=== PATIENT | male | born 1950 | race African-American/Black ===

== ENCOUNTER 2016-09-04 18:47 | Inpatient (IN) | payer OTHER ==
[2016-09-04 19:45] VITALS: BMI 25.8
--- NOTE | 2016-09-04 23:26 | HP ---
Admission ROS [facility] Chief Complaint: I WANT TO GO TO REHAB Allergies/Adverse Reactions: Allergies Allergy/AdvReac Type Severity Reaction Status Date / Time No Known Allergies Allergy Verified 09/04/16 23:22 History of Present Illness: 65 YEARS OLD MALE WITH LONG HISTORY OF COCAINE NICOTINE DEPENDENCE, HAS DIABETES GLAUCOMA, AND SCHIZOPHRENIA IS ADMITTED TO REHAB Exam Limitations: No Limitations - Ebola screening Have you traveled outside of the country in the last 21 days: No Have you had contact with anyone from an Ebola affected area: No Have you been sick,other than usual withdrawal symptoms: No Do you have a fever: No - Review of Systems Constitutional: Weight Stable EENT: reports: Other (READING AND DISTANCE EYE GLASSES) Respiratory: reports: No Symptoms reported Cardiac: reports: No Symptoms Reported GI: reports: No Symptoms Reported : reports: Flank Pain Musculoskeletal: reports: No Symptoms Reported Integumentary: reports: No Symptoms Reported Neuro: reports: No Symptoms reported Endocrine: reports: No Symptoms Reported Hematology: reports: No Symptoms Reported Psychiatric: reports: Judgement Intact, Mood/Affect Appropiate (ABILIFY 400 MG IM EVERY 28 DAYS LAST IM 09/01/16), Orientated x3 Other Systems: Reviewed and Negative Patient History - Patient Medical History Hx Anemia: No Hx Asthma: No Hx Chronic Obstructive Pulmonary Disease (COPD): No Hx Cancer: No Hx Cardiac Disorders: No Hx Congestive Heart Failure: No Hx Hypertension: No Hx Hypercholesterolemia: No Hx Pacemaker: No HX Cerebrovascular Accident: No Hx Seizures: No Hx Dementia: No Hx Diabetes: Yes Hx Gastrointestinal Disorders: No Hx Liver Disease: No Hx Genitourinary Disorders: No Hx Sexually Transmitted Disorders: No Hx Renal Disease (ESRD): No Hx Thyroid Disease: No Hx Human Immunodeficiency Virus (HIV): No Hx Hepatitis C: Yes Hx Depression: No Hx Suicide Attempt: No Hx Bipolar Disorder: No Hx Schizophrenia: Yes - Patient Surgical History Past Surgical History: No - PPD History Previous Implant?: Yes Documented Results: Positive w/o proof Implanted On Prior [facility] Admission?: No PPD to be Administered?: Yes - Smoking Cessation Smoking history: Current every day smoker Have you smoked in the past 12 months: Yes Aproximately how many cigarettes per day: 20 Cigars Per Day: 0 Hx Chewing Tobacco Use: No Initiated information on smoking cessation: Yes 'Breaking Loose' booklet given: 01/17/17 - Substance & Tx. History Hx Alcohol Use: No Hx Substance Use: Yes Substance Use Type: Cocaine Hx Substance Use Treatment: Yes - Substances Abused Cocaine Route: Inhalation Frequency: 3-6 times per week Amount used: 50$ Age of first use: 18 Date of Last Use: 08/31/16 Family Disease History - Family Disease History Family Disease History: Other: Father (), Mother () Admission Physical Exam [facility] - Vital Signs Vital Signs: Vital Signs - 24 hr 09/04/16 19:42 Temperature 96.1 F L Pulse Rate 66 Respiratory 20 Rate Blood Pressure 152/82 - Physical General Appearance: Yes: No Apparent Distress, Appropriately Dressed, Thin HEENTM: Yes: Hearing grossly Normal, Normal ENT Inspection, Normocephalic, Normal Voice Respiratory: Yes: Chest Non-Tender, Lungs Clear, Normal Breath Sounds, No Respiratory Distress, No Accessory Muscle Use Neck: Yes: Supple, Trachea in good position Breast: Yes: Breasts Symetrical Cardiology: Yes: Regular Rhythm, Regular Rate, S1, S2 Abdominal: Yes: Non Tender, Soft Genitourinary: Yes: Within Normal Limits Back: Yes: Normal Inspection Musculoskeletal: Yes: full range of Motion, Gait Steady Extremities: Yes: Normal Inspection, Normal Range of Motion, Non-Tender Neurological: Yes: Fully Oriented, Alert, Motor Strength 5/5, Normal Response, Other (SCHIZOAFFECTIVE) Integumentary: Yes: Normal Color, Warm Lymphatic: Yes: Within Normal Limits - Diagnostic (1) Cocaine dependence, uncomplicated Current Visit: Yes Status: Acute (2) Schizoaffective disorder Current Visit: Yes Status: Suspected Qualifiers: Schizoaffective disorder type: bipolar Qualified Code(s): F25.0 - Schizoaffective disorder, bipolar type Comment: ABILIFY 400 MG IM EVERY 28 DAYS LAST IM 09/01/16 (3) Nicotine dependence Current Visit: Yes Status: Acute Qualifiers: Nicotine product type: cigarettes Substance use status: uncomplicated Qualified Code(s): F17.210 - Nicotine dependence, cigarettes, uncomplicated (4) Diabetes mellitus type II, controlled Current Visit: Yes Status: Acute Qualifiers: Diabetes mellitus complication status: without complication Diabetes mellitus embalmer/funeral director insulin use: with chcf use Qualified Code(s): E11.9 - Type 2 diabetes mellitus without complications; Z79.4 - [facility] ( current) use of insulin Comment: KIMMY 20 UNITS ACBK METFORMIN 500 MG BID (5) Positive PPD, treated Current Visit: Yes Status: Resolved Comment: CHEST X RAY PENDING (6) Glaucoma Current Visit: Yes Status: Chronic Qualifiers: Glaucoma type: other Laterality: bilateral Qualified Code(s): H40.89 - Other specified glaucoma Comment: LAST EYE DROPS BOTH EYES "MONTHS" AGO (7) Hepatitis C antibody test positive Current Visit: Yes Status: Chronic Comment: SCHEDULE FOR TREATMENT Cleared for Admission [facility] - Detox or Rehab [facility] Level of Care: Observation Bed Claeared for Rehab Admission: Yes [facility] Breath Alcohol Content Breath Alcohol Content: 0 Urine Drug Screen - Results Drug Screen Negative: No Urine Drug Screen Results: NERISSA-Cocaine, TCA-Tricyclic Antidepress
[2016-09-04] MEDS ORDERED: P-EPHED 60MG/TRIPROLIDI 2.5MG TABLET PO PRN (23:31)
[2016-09-04] MEDS ORDERED: ACETAMINOPHEN 325 MG TABLET (FP) PO PRN (23:31)
[2016-09-04] MEDS ORDERED: MAGNESIUM CITRATE 300 ML BOTTLE PO PRN (23:31)
[2016-09-04] MEDS ORDERED: hydrOXYzine PAMOATE 50 MG CAPSULE (FP) PO PRN (23:31)
[2016-09-04] MEDS ORDERED: LOPERAMIDE HCL 2 MG CAPSULE PO PRN (23:31)
[2016-09-04] MEDS ORDERED: MAG HYDROX/AL HYDROX/SIMETH 30 ML UNIT-DOSE CUP PO PRN (23:31)
[2016-09-04] MEDS ORDERED: MAGNESIUM HYDROX 2400MG/30ML ORAL SUSPENSION 30 ML CUP PO PRN (23:31)
[2016-09-04] MEDS ORDERED: MENTHOL/PHENOL 1 EACH UD MM PRN (23:31)
[2016-09-04] MEDS ORDERED: guaiFENesin/D-METHORPHAN HB 10 ML UNIT-DOSE CUPS PO PRN (23:31)
[2016-09-05 02:40] LABS: URINE APPEARANCE CLEAR; URINE BILIRUBIN NEGATIVE (NEGATIVE); URINE BLOOD NEGATIVE (NEGATIVE); URINE COLOR AMBER; URINE GLUCOSE (UA) 3+ (NEGATIVE); URINE KETONE NEGATIVE (NEGATIVE); URINE NITRITE NEGATIVE (NEGATIVE); URINE PROTEIN NEGATIVE (NEGATIVE); URINE UROBILINOGEN 4.0 E.U/dl E.U./dl (0.2-1.0)
[2016-09-05 02:47] LABS: URINE LEUK ESTERASE TRACE (NEGATIVE)
[2016-09-05 02:49] LABS: URINE RBC <1 /hpf (0-3); URINE WBC 16 /hpf (3-5)
--- NOTE | 2016-09-05 07:04 | HP ---
Psychiatrist Admission - Data Date of interview: 09/05/16 Admission source: [place] mandate Identifying data: This is the second [facility] admission for this 65 years old male,father of 4 children, unemployed on SSI, living in supportive housing Medical History: Significant for history of IDDM, Glaucoma, Hep C and PPD+. Smokes cigarettes 1ppd Psychiatric History: Patient is uncooperative, reluctant and vague in providing information. He can only say that he is diagnosed with Schizophrenia and has hd 4-5 previous psychiatric hospitalizations at [facility] in [facility] once and [facility] four times. Most recent admission was in June 2016 to [facility] and was discharged on Abilify injection 400 mg IM monthy. Claims that he last received his injection on August 29, 2015 . Denies previous suicidal attempt Physical/Sexual Abuse/Trauma History: Denies history of physical, sexual abuse as well as DV relationship Additional Comment: Reports history of 4 previous felony convictions. Reports being on life parole Vital Signs: Vital Signs - 24 hr 09/04/16 09/05/16 19:42 03:30 Temperature 96.1 F L Pulse Rate 66 Respiratory 20 16 Rate Blood Pressure 152/82 Allergies/Adverse Reactions: Allergies Allergy/AdvReac Type Severity Reaction Status Date / Time Penicillins Allergy Mild Hives Verified 09/05/16 01:37 Date of last physical exam: 09/04/16 Concur with the findings of this exam: Yes - Substance Abuse/Tx History Hx Alcohol Use: No Hx Substance Use: Yes Substance Use Type: Cocaine (Started using cocaine at age 18, consumes $50 worth 3-6 times weekly. Last used on 08/31/16) Hx Substance Use Treatment: Yes (2 previous inpt rehab @ [facility] and [facility] ) - Admission Criteria Previous failed treatment: No Poor recovery environment: Yes Comorbidities: Yes Lacks judgement: Yes Mental Status Exam - Mental Status Exam Mood: Depressed, Irritable Affect: Appropriate Patient Behavior: Uncooperative Speech Pattern: Clear Voice Loudness: Normal Thought Process: Intact Hallucinations: Denies Suicidal Ideation: Denies Homicidal Ideation: Denies Insight/Judgement: Fair Sleep: Poorly Appetite: Good Muscle strength/Tone: Normal Gait/Station: Normal Psychiatric Findings - Problem List ([place] 1, 2,3) (1) Cocaine dependence, uncomplicated Current Visit: Yes Status: Acute (2) Nicotine dependence Current Visit: Yes Status: Acute Qualifiers: Nicotine product type: cigarettes Substance use status: uncomplicated Qualified Code(s): F17.210 - Nicotine dependence, cigarettes, uncomplicated (3) Schizophrenia Current Visit: Yes Status: Acute (4) Diabetes mellitus type II, controlled Current Visit: Yes Status: Acute Qualifiers: Diabetes mellitus complication status: without complication Diabetes mellitus care home insulin use: with care home use Qualified Code(s): E11.9 - Type 2 diabetes mellitus without complications Comment: LANTUS 20 UNITS ACBK METFORMIN 500 MG BID (5) Glaucoma Current Visit: Yes Status: Chronic Qualifiers: Glaucoma type: other Laterality: bilateral Qualified Code(s): H40.89 - Other specified glaucoma Comment: LAST EYE DROPS BOTH EYES "MONTHS" AGO (6) Hepatitis C antibody test positive Current Visit: Yes Status: Chronic Comment: SCHEDULE FOR TREATMENT (7) Positive PPD, treated Current Visit: Yes Status: Resolved Comment: CHEST X RAY PENDING - Initial Treatment Plan Initial Treatment Plan: 1) Patient is due for his monthly Abilify injection on September 26, 2015. 2) Monitor progress
[2016-09-05] MEDS: metFORMIN HCL 500 MG TABLET (FP) PO SCH ×2 (07:20→16:55)
[2016-09-05] MEDS: INSULIN DETEMIR 100 UNITS/ML MDV SQ SCH (07:20)
[2016-09-05] MEDS: INSULIN SLIDING SCALE (NOVOLOG) 1 VIAL SQ SCH ×4 (07:21→21:25)
[2016-09-05] MEDS ORDERED: INSULIN (NOVOLOG) ASPART 100 UNITS/ML 10ML VIAL ONE ×3 (07:22→16:54)
[2016-09-05] MEDS: PRENATAL VITAMINS W/ FOLIC ACID TABLET (FP) PO SCH (10:26)
[2016-09-05] MEDS: NICOTINE 21 MG/24 HOURS TOPICAL PATCH TD SCH (10:26)
[2016-09-05 10:39] LABS: MCH 33.2 pg (25.7-33.7); MCHC 35.2 g/dl (32.0-35.9); MEAN CELL VOLUME 94.4 fl (80-96); MEAN PLT VOLUME 9.9 fl (7.5-11.1); PLATELET COUNT 158 K/MM3 (134-434); RDW 13.2 % (11.9-15.9); WHITE BLOOD COUNT 8.1 K/mm3 (4.0-10.0)
[2016-09-05 10:47] LABS: ALBUMIN 2.7 g/dl (3.4-5.0); ALK PHOS 148 U/L (45-117); ANION GAP 3 (8-16); BILIRUBIN,TOTAL 0.5 mg/dL (0.2-1.0); CALCIUM 8.9 mg/dL (8.5-10.1); CO2 29 mmol/L (21-32); CREATININE 1.1 mg/dL (0.7-1.3); GLUCOSE,RANDOM 253 mg/dL (74-106); SGOT/AST 153 U/L (15-37); SGPT/ALT 159 U/L (12-78); TOT PROT 7.1 g/dl (6.4-8.2)
--- NOTE | 2016-09-05 11:52 | EKG ---
Test Reason : Blood Pressure : / mmHG Vent. Rate : 076 BPM Atrial Rate : 076 BPM P-R Int : 172 ms QRS Dur : 090 ms QT Int : 358 ms P-R-T Axes : 070 034 027 degrees QTc Int : 402 ms NORMAL SINUS RHYTHM SEPTAL INFARCT , AGE UNDETERMINED ABNORMAL ECG NO PREVIOUS ECGS AVAILABLE Confirmed by CARMEN ABRAHAM, INGRID ([id number]) on 09/05/2016 11:51:28 AM Referred By: Srikanth Armstrong Confirmed By:INGRID MORALES MD
[2016-09-05] MEDS: THIAMINE HCL 100 MG TABLET (FP) PO SCH (21:25)
[2016-09-05] MEDS: diphenhydrAMINE HCL 50 MG CAPSULE PO PRN (21:25)
[2016-09-06] MEDS: metFORMIN HCL 500 MG TABLET (FP) PO SCH ×2 (06:32→17:00)
[2016-09-06] MEDS: INSULIN DETEMIR 100 UNITS/ML MDV SQ SCH (07:02)
[2016-09-06] MEDS: INSULIN SLIDING SCALE (NOVOLOG) 1 VIAL SQ SCH ×4 (07:02→21:28)
[2016-09-06] MEDS: NICOTINE 21 MG/24 HOURS TOPICAL PATCH TD SCH (10:16)
[2016-09-06] MEDS: PRENATAL VITAMINS W/ FOLIC ACID TABLET (FP) PO SCH (10:16)
[2016-09-06] MEDS ORDERED: INSULIN (NOVOLOG) ASPART 100 UNITS/ML 10ML VIAL ONE ×2 (11:34→17:04)
[2016-09-06] MEDS: diphenhydrAMINE HCL 50 MG CAPSULE PO PRN (21:28)
[2016-09-06] MEDS: THIAMINE HCL 100 MG TABLET (FP) PO SCH (21:29)
[2016-09-07] MEDS: metFORMIN HCL 500 MG TABLET (FP) PO SCH ×2 (07:30→16:55)
[2016-09-07] MEDS: INSULIN SLIDING SCALE (NOVOLOG) 1 VIAL SQ SCH ×4 (07:30→22:44)
[2016-09-07] MEDS ORDERED: INSULIN (NOVOLOG) ASPART 100 UNITS/ML 10ML VIAL ONE ×3 (07:30→16:52)
[2016-09-07] MEDS: INSULIN DETEMIR 100 UNITS/ML MDV SQ SCH (07:30)
[2016-09-07] MEDS: NICOTINE 21 MG/24 HOURS TOPICAL PATCH TD SCH (10:16)
[2016-09-07] MEDS: PRENATAL VITAMINS W/ FOLIC ACID TABLET (FP) PO SCH (10:16)
[2016-09-07] MEDS: THIAMINE HCL 100 MG TABLET (FP) PO SCH (22:44)
[2016-09-08] MEDS: metFORMIN HCL 500 MG TABLET (FP) PO SCH ×2 (06:30→16:52)
[2016-09-08] MEDS: INSULIN DETEMIR 100 UNITS/ML MDV SQ SCH (06:32)
[2016-09-08] MEDS ORDERED: INSULIN (NOVOLOG) ASPART 100 UNITS/ML 10ML VIAL ONE ×4 (06:34→22:04)
[2016-09-08] MEDS: INSULIN SLIDING SCALE (NOVOLOG) 1 VIAL SQ SCH ×4 (06:35→21:10)
[2016-09-08] MEDS: NICOTINE 21 MG/24 HOURS TOPICAL PATCH TD SCH (10:19)
[2016-09-08] MEDS: PRENATAL VITAMINS W/ FOLIC ACID TABLET (FP) PO SCH (10:19)
[2016-09-08] MEDS: THIAMINE HCL 100 MG TABLET (FP) PO SCH (21:09)
[2016-09-08] MEDS: diphenhydrAMINE HCL 50 MG CAPSULE PO PRN (21:09)
[2016-09-09] MEDS ORDERED: INSULIN (NOVOLOG) ASPART 100 UNITS/ML 10ML VIAL ONE ×4 (07:21→22:14)
[2016-09-09] MEDS: metFORMIN HCL 500 MG TABLET (FP) PO SCH ×2 (07:23→16:54)
[2016-09-09] MEDS: INSULIN DETEMIR 100 UNITS/ML MDV SQ SCH (07:23)
[2016-09-09] MEDS: INSULIN SLIDING SCALE (NOVOLOG) 1 VIAL SQ SCH ×4 (07:24→21:29)
[2016-09-09] MEDS: PRENATAL VITAMINS W/ FOLIC ACID TABLET (FP) PO SCH (10:12)
[2016-09-09] MEDS: NICOTINE 21 MG/24 HOURS TOPICAL PATCH TD SCH (10:12)
[2016-09-09] MEDS: THIAMINE HCL 100 MG TABLET (FP) PO SCH (21:29)
[2016-09-09] MEDS: diphenhydrAMINE HCL 50 MG CAPSULE PO PRN (21:29)
[2016-09-10] MEDS: metFORMIN HCL 500 MG TABLET (FP) PO SCH ×2 (06:38→16:50)
[2016-09-10] MEDS: INSULIN SLIDING SCALE (NOVOLOG) 1 VIAL SQ SCH ×4 (06:41→21:18)
[2016-09-10] MEDS: INSULIN DETEMIR 100 UNITS/ML MDV SQ SCH (06:41)
[2016-09-10] MEDS ORDERED: INSULIN (NOVOLOG) ASPART 100 UNITS/ML 10ML VIAL ONE ×3 (07:12→22:40)
[2016-09-10] MEDS: NICOTINE 21 MG/24 HOURS TOPICAL PATCH TD SCH (10:52)
[2016-09-10] MEDS: PRENATAL VITAMINS W/ FOLIC ACID TABLET (FP) PO SCH (10:52)
[2016-09-10] MEDS: diphenhydrAMINE HCL 50 MG CAPSULE PO PRN (21:18)
[2016-09-10] MEDS: THIAMINE HCL 100 MG TABLET (FP) PO SCH (21:18)
[2016-09-11] MEDS: metFORMIN HCL 500 MG TABLET (FP) PO SCH ×2 (07:38→16:53)
[2016-09-11] MEDS: INSULIN DETEMIR 100 UNITS/ML MDV SQ SCH (07:39)
[2016-09-11] MEDS: INSULIN SLIDING SCALE (NOVOLOG) 1 VIAL SQ SCH ×4 (07:39→21:39)
[2016-09-11] MEDS ORDERED: INSULIN (NOVOLOG) ASPART 100 UNITS/ML 10ML VIAL ONE ×3 (07:39→16:52)
[2016-09-11] MEDS: PRENATAL VITAMINS W/ FOLIC ACID TABLET (FP) PO SCH (10:08)
[2016-09-11] MEDS: NICOTINE 21 MG/24 HOURS TOPICAL PATCH TD SCH (10:09)
[2016-09-11] MEDS: IBUPROFEN 400 MG TABLET (FP) PO PRN ×2 (10:40→20:07)
[2016-09-11] MEDS: diphenhydrAMINE HCL 50 MG CAPSULE PO PRN (21:38)
[2016-09-11] MEDS: THIAMINE HCL 100 MG TABLET (FP) PO SCH (21:38)
[2016-09-12] MEDS ORDERED: INSULIN (NOVOLOG) ASPART 100 UNITS/ML 10ML VIAL ONE ×3 (07:35→16:42)
[2016-09-12] MEDS: INSULIN DETEMIR 100 UNITS/ML MDV SQ SCH (07:39)
[2016-09-12] MEDS: metFORMIN HCL 500 MG TABLET (FP) PO SCH ×2 (07:39→16:42)
[2016-09-12] MEDS: INSULIN SLIDING SCALE (NOVOLOG) 1 VIAL SQ SCH ×4 (07:40→22:18)
[2016-09-12] MEDS: PRENATAL VITAMINS W/ FOLIC ACID TABLET (FP) PO SCH (10:11)
[2016-09-12] MEDS: NICOTINE 21 MG/24 HOURS TOPICAL PATCH TD SCH (10:12)
[2016-09-12] MEDS: IBUPROFEN 400 MG TABLET (FP) PO PRN (11:55)
[2016-09-12] MEDS: THIAMINE HCL 100 MG TABLET (FP) PO SCH (21:22)
[2016-09-12] MEDS: CYCLOBENZAPRINE HCL 10 MG TABLET (FP) PO PRN (21:22)
[2016-09-13] MEDS ORDERED: INSULIN (NOVOLOG) ASPART 100 UNITS/ML 10ML VIAL ONE ×4 (07:01→22:02)
[2016-09-13] MEDS: INSULIN DETEMIR 100 UNITS/ML MDV SQ SCH (07:02)
[2016-09-13] MEDS: metFORMIN HCL 500 MG TABLET (FP) PO SCH ×2 (07:02→16:51)
[2016-09-13] MEDS: INSULIN SLIDING SCALE (NOVOLOG) 1 VIAL SQ SCH ×4 (07:02→21:23)
[2016-09-13] MEDS: PRENATAL VITAMINS W/ FOLIC ACID TABLET (FP) PO SCH (09:57)
[2016-09-13] MEDS: NICOTINE 21 MG/24 HOURS TOPICAL PATCH TD SCH (09:57)
--- NOTE | 2016-09-13 11:14 | HP ---
Psychiatrist Admission - Data Date of interview: 09/13/16 Admission source: Self-referred Vital Signs: Vital Signs - 24 hr 09/13/16 09/13/16 03:30 06:54 Temperature 98.3 F Pulse Rate 70 Respiratory 18 18 Rate Blood Pressure 143/90 Allergies/Adverse Reactions: Allergies Allergy/AdvReac Type Severity Reaction Status Date / Time Penicillins Allergy Mild Hives Verified 09/05/16 01:37 Psychiatric Findings - Problem List ([place] 1, 2,3) (1) Cocaine dependence, uncomplicated Current Visit: Yes Status: Acute (2) Nicotine dependence Current Visit: Yes Status: Acute Qualifiers: Nicotine product type: cigarettes Substance use status: uncomplicated Qualified Code(s): F17.210 - Nicotine dependence, cigarettes, uncomplicated (3) Schizophrenia Current Visit: Yes Status: Acute (4) Diabetes mellitus type II, controlled Current Visit: Yes Status: Acute Qualifiers: Diabetes mellitus complication status: without complication 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
[2016-09-13] MEDS: CYCLOBENZAPRINE HCL 10 MG TABLET (FP) PO PRN (15:51)
[2016-09-13] MEDS: diphenhydrAMINE HCL 50 MG CAPSULE PO PRN (21:24)
[2016-09-13] MEDS: THIAMINE HCL 100 MG TABLET (FP) PO SCH (21:24)
[2016-09-14] MEDS ORDERED: INSULIN (NOVOLOG) ASPART 100 UNITS/ML 10ML VIAL ONE ×3 (07:35→22:53)
[2016-09-14] MEDS: INSULIN DETEMIR 100 UNITS/ML MDV SQ SCH (07:36)
[2016-09-14] MEDS: metFORMIN HCL 500 MG TABLET (FP) PO SCH ×2 (07:36→16:45)
[2016-09-14] MEDS: INSULIN SLIDING SCALE (NOVOLOG) 1 VIAL SQ SCH ×4 (07:36→21:52)
[2016-09-14] MEDS: PRENATAL VITAMINS W/ FOLIC ACID TABLET (FP) PO SCH (10:04)
[2016-09-14] MEDS: NICOTINE 21 MG/24 HOURS TOPICAL PATCH TD SCH (10:04)
[2016-09-14] MEDS: ARIPiprazole 5 MG TABLET (FP) PO SCH (10:20)
--- NOTE | 2016-09-14 11:00 | PN ---
[facility] Progress Note Note: Patient is on Abilify Maintena 400 mg IM every month and he will be due to receive it on 09/19/16. Since that medication is not part of the facility formulary, patient referral source, [facility] was contacted in order for them to provide us with the medication sealed so a staff nurse in our facility can administer it to the patient. Conveyor Man contated [facility] and talked to Chucky Grover who is the director. He said that he will make sure we receive medication prior to administration date(09/19/16). Also health technical writer is in possession of a fax of patient's current medication list from [facility]. On that list, not only Abilify maintena is figured but also Abilify 5 mg po daily. That information was verified with or confirmed by Mr Grover. So patient will be started on Abilify 5 mg po daily with first dose to be given now
[2016-09-14] MEDS: diphenhydrAMINE HCL 50 MG CAPSULE PO PRN (21:52)
[2016-09-14] MEDS: THIAMINE HCL 100 MG TABLET (FP) PO SCH (21:52)
[2016-09-15] MEDS: metFORMIN HCL 500 MG TABLET (FP) PO SCH ×2 (07:09→16:48)
[2016-09-15] MEDS: INSULIN DETEMIR 100 UNITS/ML MDV SQ SCH (07:29)
[2016-09-15] MEDS: INSULIN SLIDING SCALE (NOVOLOG) 1 VIAL SQ SCH ×4 (07:30→22:00)
[2016-09-15] MEDS ORDERED: INSULIN (NOVOLOG) ASPART 100 UNITS/ML 10ML VIAL ONE ×4 (07:47→21:59)
[2016-09-15] MEDS: ARIPiprazole 5 MG TABLET (FP) PO SCH (10:23)
[2016-09-15] MEDS: PRENATAL VITAMINS W/ FOLIC ACID TABLET (FP) PO SCH (10:23)
[2016-09-15] MEDS: NICOTINE 21 MG/24 HOURS TOPICAL PATCH TD SCH (10:24)
[2016-09-15] MEDS: THIAMINE HCL 100 MG TABLET (FP) PO SCH (21:57)
[2016-09-15] MEDS: CYCLOBENZAPRINE HCL 10 MG TABLET (FP) PO PRN (21:57)
[2016-09-15] MEDS: diphenhydrAMINE HCL 50 MG CAPSULE PO PRN (21:58)
[2016-09-16] MEDS: metFORMIN HCL 500 MG TABLET (FP) PO SCH ×2 (06:25→16:45)
[2016-09-16] MEDS: INSULIN DETEMIR 100 UNITS/ML MDV SQ SCH (06:28)
[2016-09-16] MEDS: INSULIN SLIDING SCALE (NOVOLOG) 1 VIAL SQ SCH ×4 (06:29→21:33)
[2016-09-16] MEDS: ARIPiprazole 5 MG TABLET (FP) PO SCH (10:00)
[2016-09-16] MEDS: NICOTINE 21 MG/24 HOURS TOPICAL PATCH TD SCH (10:00)
[2016-09-16] MEDS: PRENATAL VITAMINS W/ FOLIC ACID TABLET (FP) PO SCH (10:00)
[2016-09-16] MEDS: NICOTINE POLACRILEX 2 MG GUM BC PRN (10:00)
[2016-09-16] MEDS ORDERED: INSULIN (NOVOLOG) ASPART 100 UNITS/ML 10ML VIAL ONE ×3 (11:28→21:33)
[2016-09-16] MEDS: diphenhydrAMINE HCL 50 MG CAPSULE PO PRN (21:32)
[2016-09-16] MEDS: THIAMINE HCL 100 MG TABLET (FP) PO SCH (21:32)
[2016-09-16] MEDS: CYCLOBENZAPRINE HCL 10 MG TABLET (FP) PO PRN (21:32)
[2016-09-17] MEDS: metFORMIN HCL 500 MG TABLET (FP) PO SCH ×2 (07:26→16:51)
[2016-09-17] MEDS: INSULIN DETEMIR 100 UNITS/ML MDV SQ SCH (07:26)
[2016-09-17] MEDS: INSULIN SLIDING SCALE (NOVOLOG) 1 VIAL SQ SCH ×4 (07:27→21:07)
[2016-09-17] MEDS ORDERED: INSULIN (NOVOLOG) ASPART 100 UNITS/ML 10ML VIAL ONE ×4 (07:40→21:06)
[2016-09-17] MEDS: PRENATAL VITAMINS W/ FOLIC ACID TABLET (FP) PO SCH (10:18)
[2016-09-17] MEDS: ARIPiprazole 5 MG TABLET (FP) PO SCH (10:18)
[2016-09-17] MEDS: NICOTINE 21 MG/24 HOURS TOPICAL PATCH TD SCH (10:18)
[2016-09-17] MEDS: THIAMINE HCL 100 MG TABLET (FP) PO SCH (21:07)
[2016-09-17] MEDS: CYCLOBENZAPRINE HCL 10 MG TABLET (FP) PO PRN (21:07)
[2016-09-18] MEDS: metFORMIN HCL 500 MG TABLET (FP) PO SCH ×2 (06:14→16:42)
[2016-09-18] MEDS: INSULIN DETEMIR 100 UNITS/ML MDV SQ SCH (07:19)
[2016-09-18] MEDS: INSULIN SLIDING SCALE (NOVOLOG) 1 VIAL SQ SCH ×4 (07:19→21:36)
[2016-09-18] MEDS ORDERED: INSULIN (NOVOLOG) ASPART 100 UNITS/ML 10ML VIAL ONE ×4 (07:58→21:34)
[2016-09-18] MEDS: NICOTINE 21 MG/24 HOURS TOPICAL PATCH TD SCH (10:08)
[2016-09-18] MEDS: PRENATAL VITAMINS W/ FOLIC ACID TABLET (FP) PO SCH (10:08)
[2016-09-18] MEDS: ARIPiprazole 5 MG TABLET (FP) PO SCH (10:08)
[2016-09-18] MEDS: diphenhydrAMINE HCL 50 MG CAPSULE PO PRN (21:34)
[2016-09-18] MEDS: THIAMINE HCL 100 MG TABLET (FP) PO SCH (21:34)
[2016-09-19] MEDS: CYCLOBENZAPRINE HCL 10 MG TABLET (FP) PO PRN (06:44)
[2016-09-19] MEDS: INSULIN SLIDING SCALE (NOVOLOG) 1 VIAL SQ SCH ×4 (07:30→21:58)
[2016-09-19] MEDS ORDERED: INSULIN (NOVOLOG) ASPART 100 UNITS/ML 10ML VIAL ONE ×4 (08:00→21:56)
[2016-09-19] MEDS: INSULIN DETEMIR 100 UNITS/ML MDV SQ SCH (08:01)
[2016-09-19] MEDS: metFORMIN HCL 500 MG TABLET (FP) PO SCH ×2 (08:01→16:46)
[2016-09-19] MEDS: NICOTINE 21 MG/24 HOURS TOPICAL PATCH TD SCH (10:05)
[2016-09-19] MEDS: ARIPiprazole 5 MG TABLET (FP) PO SCH (10:05)
[2016-09-19] MEDS: PRENATAL VITAMINS W/ FOLIC ACID TABLET (FP) PO SCH (10:05)
[2016-09-19] MEDS: ARIPIPRAZOLE 400 MG IM SCH (15:25)
[2016-09-19] MEDS: diphenhydrAMINE HCL 50 MG CAPSULE PO PRN (21:58)
[2016-09-19] MEDS: THIAMINE HCL 100 MG TABLET (FP) PO SCH (21:58)
[2016-09-20] MEDS: metFORMIN HCL 500 MG TABLET (FP) PO SCH ×2 (06:40→16:39)
[2016-09-20] MEDS: INSULIN SLIDING SCALE (NOVOLOG) 1 VIAL SQ SCH ×4 (06:43→22:15)
[2016-09-20] MEDS: INSULIN DETEMIR 100 UNITS/ML MDV SQ SCH (06:43)
[2016-09-20] MEDS ORDERED: INSULIN (NOVOLOG) ASPART 100 UNITS/ML 10ML VIAL ONE ×4 (08:05→22:13)
[2016-09-20] MEDS: ARIPiprazole 5 MG TABLET (FP) PO SCH (10:28)
[2016-09-20] MEDS: PRENATAL VITAMINS W/ FOLIC ACID TABLET (FP) PO SCH (10:29)
[2016-09-20] MEDS: NICOTINE 21 MG/24 HOURS TOPICAL PATCH TD SCH (10:29)
[2016-09-20] MEDS: ARIPIPRAZOLE 400 MG IM SCH (15:34)
[2016-09-20] MEDS: diphenhydrAMINE HCL 50 MG CAPSULE PO PRN (22:13)
[2016-09-20] MEDS: THIAMINE HCL 100 MG TABLET (FP) PO SCH (22:13)
[2016-09-21] MEDS: CYCLOBENZAPRINE HCL 10 MG TABLET (FP) PO PRN (06:39)
[2016-09-21] MEDS: metFORMIN HCL 500 MG TABLET (FP) PO SCH ×2 (07:28→16:49)
[2016-09-21] MEDS: INSULIN SLIDING SCALE (NOVOLOG) 1 VIAL SQ SCH ×4 (07:28→21:07)
[2016-09-21] MEDS: INSULIN DETEMIR 100 UNITS/ML MDV SQ SCH (07:28)
[2016-09-21] MEDS ORDERED: INSULIN (NOVOLOG) ASPART 100 UNITS/ML 10ML VIAL ONE ×3 (07:30→22:28)
[2016-09-21] MEDS: PRENATAL VITAMINS W/ FOLIC ACID TABLET (FP) PO SCH (10:34)
[2016-09-21] MEDS: ARIPiprazole 5 MG TABLET (FP) PO SCH (10:34)
[2016-09-21] MEDS: NICOTINE 21 MG/24 HOURS TOPICAL PATCH TD SCH (10:34)
[2016-09-21] MEDS: diphenhydrAMINE HCL 50 MG CAPSULE PO PRN (21:06)
[2016-09-21] MEDS: THIAMINE HCL 100 MG TABLET (FP) PO SCH (21:06)
[2016-09-22] MEDS: CYCLOBENZAPRINE HCL 10 MG TABLET (FP) PO PRN (06:17)
[2016-09-22] MEDS: metFORMIN HCL 500 MG TABLET (FP) PO SCH ×2 (07:06→16:57)
[2016-09-22] MEDS ORDERED: INSULIN (NOVOLOG) ASPART 100 UNITS/ML 10ML VIAL ONE ×4 (07:06→22:25)
[2016-09-22] MEDS: INSULIN SLIDING SCALE (NOVOLOG) 1 VIAL SQ SCH ×4 (07:07→21:27)
[2016-09-22] MEDS: INSULIN DETEMIR 100 UNITS/ML MDV SQ SCH (07:07)
[2016-09-22] MEDS: PRENATAL VITAMINS W/ FOLIC ACID TABLET (FP) PO SCH (10:33)
[2016-09-22] MEDS: ARIPiprazole 5 MG TABLET (FP) PO SCH (10:33)
[2016-09-22] MEDS: NICOTINE 21 MG/24 HOURS TOPICAL PATCH TD SCH (10:33)
[2016-09-22] MEDS: diphenhydrAMINE HCL 50 MG CAPSULE PO PRN (21:26)
[2016-09-22] MEDS: THIAMINE HCL 100 MG TABLET (FP) PO SCH (21:26)
[2016-09-23] MEDS: CYCLOBENZAPRINE HCL 10 MG TABLET (FP) PO PRN (06:28)
[2016-09-23] MEDS ORDERED: INSULIN (NOVOLOG) ASPART 100 UNITS/ML 10ML VIAL ONE ×4 (07:18→21:54)
[2016-09-23] MEDS: metFORMIN HCL 500 MG TABLET (FP) PO SCH ×2 (07:20→16:52)
[2016-09-23] MEDS: INSULIN SLIDING SCALE (NOVOLOG) 1 VIAL SQ SCH ×4 (07:20→21:22)
[2016-09-23] MEDS: INSULIN DETEMIR 100 UNITS/ML MDV SQ SCH (07:20)
[2016-09-23] MEDS: ARIPiprazole 5 MG TABLET (FP) PO SCH (10:31)
[2016-09-23] MEDS: NICOTINE 21 MG/24 HOURS TOPICAL PATCH TD SCH (10:31)
[2016-09-23] MEDS: PRENATAL VITAMINS W/ FOLIC ACID TABLET (FP) PO SCH (10:31)
[2016-09-23] MEDS: NICOTINE POLACRILEX 2 MG GUM BC PRN (10:32)
[2016-09-23] MEDS: THIAMINE HCL 100 MG TABLET (FP) PO SCH (21:22)
[2016-09-23] MEDS: diphenhydrAMINE HCL 50 MG CAPSULE PO PRN (21:22)
[2016-09-24] MEDS: metFORMIN HCL 500 MG TABLET (FP) PO SCH ×2 (06:33→16:57)
[2016-09-24] MEDS: INSULIN SLIDING SCALE (NOVOLOG) 1 VIAL SQ SCH ×4 (07:07→22:12)
[2016-09-24] MEDS: INSULIN DETEMIR 100 UNITS/ML MDV SQ SCH (07:07)
[2016-09-24] MEDS: NICOTINE 21 MG/24 HOURS TOPICAL PATCH TD SCH (10:21)
[2016-09-24] MEDS: ARIPiprazole 5 MG TABLET (FP) PO SCH (10:21)
[2016-09-24] MEDS: PRENATAL VITAMINS W/ FOLIC ACID TABLET (FP) PO SCH (10:21)
[2016-09-24] MEDS ORDERED: INSULIN (NOVOLOG) ASPART 100 UNITS/ML 10ML VIAL ONE ×3 (11:20→22:10)
[2016-09-24] MEDS: diphenhydrAMINE HCL 50 MG CAPSULE PO PRN (22:11)
[2016-09-24] MEDS: THIAMINE HCL 100 MG TABLET (FP) PO SCH (22:11)
[2016-09-25] MEDS: metFORMIN HCL 500 MG TABLET (FP) PO SCH ×2 (06:27→16:54)
[2016-09-25] MEDS ORDERED: INSULIN (NOVOLOG) ASPART 100 UNITS/ML 10ML VIAL ONE ×4 (06:44→21:58)
[2016-09-25] MEDS: INSULIN DETEMIR 100 UNITS/ML MDV SQ SCH (06:57)
[2016-09-25] MEDS: INSULIN SLIDING SCALE (NOVOLOG) 1 VIAL SQ SCH ×4 (06:57→22:00)
[2016-09-25] MEDS: NICOTINE 21 MG/24 HOURS TOPICAL PATCH TD SCH (10:21)
[2016-09-25] MEDS: ARIPiprazole 5 MG TABLET (FP) PO SCH (10:21)
[2016-09-25] MEDS: PRENATAL VITAMINS W/ FOLIC ACID TABLET (FP) PO SCH (10:21)
--- NOTE | 2016-09-25 12:54 | PN ---
S Progress Note Note: patient is on janumet 50/500 mgs po bid, will add januvia 50 mgs po bid to metformin bgm monitoring
[2016-09-25] MEDS: sitaGLIPtin PHOSPHATE 50 MG TABLET PO SCH (16:54)
[2016-09-25] MEDS: diphenhydrAMINE HCL 50 MG CAPSULE PO PRN (21:58)
[2016-09-25] MEDS: THIAMINE HCL 100 MG TABLET (FP) PO SCH (21:58)
[2016-09-26] MEDS: sitaGLIPtin PHOSPHATE 50 MG TABLET PO SCH ×2 (06:37→16:38)
[2016-09-26] MEDS: metFORMIN HCL 500 MG TABLET (FP) PO SCH ×2 (06:37→16:38)
[2016-09-26] MEDS: INSULIN SLIDING SCALE (NOVOLOG) 1 VIAL SQ SCH ×4 (06:38→21:39)
[2016-09-26] MEDS: INSULIN DETEMIR 100 UNITS/ML MDV SQ SCH (06:38)
[2016-09-26] MEDS ORDERED: INSULIN (NOVOLOG) ASPART 100 UNITS/ML 10ML VIAL ONE ×4 (06:57→21:37)
[2016-09-26] MEDS: NICOTINE 21 MG/24 HOURS TOPICAL PATCH TD SCH (10:21)
[2016-09-26] MEDS: PRENATAL VITAMINS W/ FOLIC ACID TABLET (FP) PO SCH (10:21)
[2016-09-26] MEDS: ARIPiprazole 5 MG TABLET (FP) PO SCH (10:21)
[2016-09-26] MEDS: diphenhydrAMINE HCL 50 MG CAPSULE PO PRN (21:37)
[2016-09-26] MEDS: THIAMINE HCL 100 MG TABLET (FP) PO SCH (21:37)
[2016-09-27] MEDS: sitaGLIPtin PHOSPHATE 50 MG TABLET PO SCH ×2 (07:00→16:46)
[2016-09-27] MEDS: metFORMIN HCL 500 MG TABLET (FP) PO SCH ×2 (07:00→16:45)
[2016-09-27] MEDS ORDERED: INSULIN (NOVOLOG) ASPART 100 UNITS/ML 10ML VIAL ONE ×4 (07:01→22:11)
[2016-09-27] MEDS: INSULIN DETEMIR 100 UNITS/ML MDV SQ SCH (07:03)
[2016-09-27] MEDS: INSULIN SLIDING SCALE (NOVOLOG) 1 VIAL SQ SCH ×4 (07:03→21:25)
[2016-09-27] MEDS: ARIPiprazole 5 MG TABLET (FP) PO SCH (10:06)
[2016-09-27] MEDS: PRENATAL VITAMINS W/ FOLIC ACID TABLET (FP) PO SCH (10:06)
[2016-09-27] MEDS: NICOTINE 21 MG/24 HOURS TOPICAL PATCH TD SCH (10:07)
[2016-09-27] MEDS: THIAMINE HCL 100 MG TABLET (FP) PO SCH (21:24)
[2016-09-27] MEDS: diphenhydrAMINE HCL 50 MG CAPSULE PO PRN (21:24)
[2016-09-28] MEDS: sitaGLIPtin PHOSPHATE 50 MG TABLET PO SCH ×2 (06:40→16:46)
[2016-09-28] MEDS: metFORMIN HCL 500 MG TABLET (FP) PO SCH ×2 (06:40→16:46)
[2016-09-28] MEDS: INSULIN DETEMIR 100 UNITS/ML MDV SQ SCH (06:42)
[2016-09-28] MEDS: INSULIN SLIDING SCALE (NOVOLOG) 1 VIAL SQ SCH ×4 (06:43→21:16)
[2016-09-28] MEDS ORDERED: INSULIN (NOVOLOG) ASPART 100 UNITS/ML 10ML VIAL ONE ×3 (06:44→22:27)
[2016-09-28] MEDS: ARIPiprazole 5 MG TABLET (FP) PO SCH (10:29)
[2016-09-28] MEDS: NICOTINE 21 MG/24 HOURS TOPICAL PATCH TD SCH (10:29)
[2016-09-28] MEDS: PRENATAL VITAMINS W/ FOLIC ACID TABLET (FP) PO SCH (10:29)
[2016-09-28] MEDS: THIAMINE HCL 100 MG TABLET (FP) PO SCH (21:16)
[2016-09-28] MEDS: diphenhydrAMINE HCL 50 MG CAPSULE PO PRN (21:16)
[2016-09-29] MEDS: metFORMIN HCL 500 MG TABLET (FP) PO SCH ×2 (06:44→16:25)
[2016-09-29] MEDS: sitaGLIPtin PHOSPHATE 50 MG TABLET PO SCH ×2 (06:45→16:25)
[2016-09-29] MEDS: INSULIN DETEMIR 100 UNITS/ML MDV SQ SCH (06:47)
[2016-09-29] MEDS: INSULIN SLIDING SCALE (NOVOLOG) 1 VIAL SQ SCH ×4 (06:47→21:40)
[2016-09-29] MEDS ORDERED: INSULIN (NOVOLOG) ASPART 100 UNITS/ML 10ML VIAL ONE ×4 (08:03→21:39)
[2016-09-29] MEDS: PRENATAL VITAMINS W/ FOLIC ACID TABLET (FP) PO SCH (10:05)
[2016-09-29] MEDS: ARIPiprazole 5 MG TABLET (FP) PO SCH (10:05)
[2016-09-29] MEDS: NICOTINE 21 MG/24 HOURS TOPICAL PATCH TD SCH (10:05)
[2016-09-29] MEDS: diphenhydrAMINE HCL 50 MG CAPSULE PO PRN (21:39)
[2016-09-29] MEDS: THIAMINE HCL 100 MG TABLET (FP) PO SCH (21:39)
[2016-09-30] MEDS: metFORMIN HCL 500 MG TABLET (FP) PO SCH ×2 (06:46→16:27)
[2016-09-30] MEDS: INSULIN DETEMIR 100 UNITS/ML MDV SQ SCH (06:46)
[2016-09-30] MEDS: sitaGLIPtin PHOSPHATE 50 MG TABLET PO SCH ×2 (06:46→16:27)
[2016-09-30] MEDS: INSULIN SLIDING SCALE (NOVOLOG) 1 VIAL SQ SCH ×4 (06:48→21:42)
[2016-09-30] MEDS ORDERED: INSULIN (NOVOLOG) ASPART 100 UNITS/ML 10ML VIAL ONE ×4 (07:45→21:40)
[2016-09-30] MEDS: ARIPiprazole 5 MG TABLET (FP) PO SCH (10:05)
[2016-09-30] MEDS: NICOTINE 21 MG/24 HOURS TOPICAL PATCH TD SCH (10:05)
[2016-09-30] MEDS: PRENATAL VITAMINS W/ FOLIC ACID TABLET (FP) PO SCH (10:05)
[2016-09-30] MEDS: diphenhydrAMINE HCL 50 MG CAPSULE PO PRN (21:41)
[2016-09-30] MEDS: THIAMINE HCL 100 MG TABLET (FP) PO SCH (21:41)
[2016-10-01] MEDS: sitaGLIPtin PHOSPHATE 50 MG TABLET PO SCH ×2 (06:13→16:47)
[2016-10-01] MEDS: metFORMIN HCL 500 MG TABLET (FP) PO SCH ×2 (06:13→16:47)
[2016-10-01] MEDS: INSULIN SLIDING SCALE (NOVOLOG) 1 VIAL SQ SCH ×4 (06:17→21:42)
[2016-10-01] MEDS: INSULIN DETEMIR 100 UNITS/ML MDV SQ SCH (06:17)
[2016-10-01] MEDS ORDERED: INSULIN (NOVOLOG) ASPART 100 UNITS/ML 10ML VIAL ONE ×4 (06:29→22:13)
[2016-10-01] MEDS: PRENATAL VITAMINS W/ FOLIC ACID TABLET (FP) PO SCH (10:41)
[2016-10-01] MEDS: NICOTINE 21 MG/24 HOURS TOPICAL PATCH TD SCH (10:41)
[2016-10-01] MEDS: ARIPiprazole 5 MG TABLET (FP) PO SCH (10:41)
[2016-10-01] MEDS: THIAMINE HCL 100 MG TABLET (FP) PO SCH (21:42)
[2016-10-01] MEDS: diphenhydrAMINE HCL 50 MG CAPSULE PO PRN (21:42)
[2016-10-02] MEDS: metFORMIN HCL 500 MG TABLET (FP) PO SCH (07:14)
[2016-10-02] MEDS: sitaGLIPtin PHOSPHATE 50 MG TABLET PO SCH (07:14)
[2016-10-02] MEDS ORDERED: INSULIN (NOVOLOG) ASPART 100 UNITS/ML 10ML VIAL ONE (07:15)
[2016-10-02] MEDS: INSULIN SLIDING SCALE (NOVOLOG) 1 VIAL SQ SCH (07:16)
[2016-10-02] MEDS: INSULIN DETEMIR 100 UNITS/ML MDV SQ SCH (07:16)
[2016-10-02 08:22] VITALS: BP 123/80; PULSE 72; TEMP 97.7
--- NOTE | 2016-10-02 08:28 | PN ---
Psychiatric Progress Note Vital Signs: Vital Signs Period Temp Pulse Resp BP Sys/Condon Pulse Ox Last 24 Hr 18-18 Date of Session: 10/02/16 Chief Complaint:: discharge HPI: Patient has addressed cocxaine, nicotine dependence comorbid Schizophrenia. ROS: Significant for history of IDDM, Glaucoma, Hep C medically managed. Current Medications: Active Medications Generic Name Dose Route Start Last Admin Trade Name Freq PRN Reason Stop Dose Admin Acetaminophen 650 mg 09/04/16 23:31 09/09/16 11:14 Tylenol - PO 650 mg Q4H PRN Administration PAIN Al Hydroxide/Mg Hydroxide 30 ml 09/04/16 23:31 Mylanta Oral Suspension - PO Q6H PRN DYSPEPSIA Aripiprazole 5 mg 09/14/16 10:45 10/01/16 10:41 Abilify PO 5 mg DAILY HAYDE Administration Cyclobenzaprine HCl 10 mg 09/12/16 14:11 09/23/16 06:28 Flexeril - PO 10 mg TID PRN Administration MUSCLE SPASMS Diphenhydramine HCl 50 mg 09/04/16 23:31 10/01/16 21:42 Benadryl - PO 50 mg HSMR1 PRN Administration INSOMNIA Eucalyptus/Menthol/Phenol/Sorbitol 1 each 09/04/16 23:31 Cepastat Lozenge - MM Q4H PRN SORE THROAT Guaifenesin 10 ml 09/04/16 23:31 Robitussin Dm - PO Q6H PRN COUGH Hydroxyzine Pamoate 50 mg 09/04/16 23:31 Vistaril - PO Q4H PRN AGITATION Ibuprofen 400 mg 09/04/16 23:31 09/12/16 11:55 Motrin - PO 400 mg Q6H PRN Administration SEVERE PAIN Insulin Aspart 1 vial 09/24/16 23:25 10/02/16 07:16 Novolog Vial Sliding Scale - SQ 6 units ACHS HAYDE Administration Protocol Insulin Detemir 20 units 09/05/16 07:00 10/02/16 07:16 Levemir Vial SQ 20 units ACBK HAYDE Administration Loperamide HCl 4 mg 09/04/16 23:31 Imodium - PO Q6H PRN DIARRHEA Magnesium Citrate 300 ml 09/04/16 23:31 Citroma - PO Q48H PRN CONSTIPATION Magnesium Hydroxide 30 ml 09/04/16 23:31 Milk Of Magnesia - PO DAILY PRN CONSTIPATION Metformin HCl 500 mg 09/05/16 07:00 10/02/16 07:14 Glucophage - PO 500 mg BID@0700,1630 HAYDE Administration Nicotine 21 mg 09/05/16 10:00 10/01/16 10:41 Nicoderm Patch - TD Not Given DAILY HAYDE Nicotine Polacrilex 2 mg 09/04/16 23:31 09/23/16 10:32 Nicorette Gum - BC 2 mg Q2H PRN Administration NICOTINE REPLACEMENT RX Multivit/Folic Acid/Iron 1 tab 09/05/16 10:00 10/01/16 10:41 Vitamins ([facility]) - PO 1 tab DAILY HAYDE Administration Pseudoephedrine/Triprolidine 1 combo 09/04/16 23:31 Actifed - PO TID PRN NASAL CONGESTION Sitagliptin Phosphate 50 mg 09/25/16 16:30 10/02/16 07:14 Januvia - PO 50 mg BID@0700,1630 HAYDE Administration Thiamine HCl 100 mg 09/05/16 22:00 10/01/16 21:42 Vitamin B1 - PO 100 mg HS HAYDE Administration Current Side Effect: No Lab tests ordered: No Lab tests reviewed: Yes Provider note:: Patient has completed today treatment and met his goals, will continue to address his issues at [facility] outpatient treatment program wher he will f/u with his psychiatrist as well. Patient had his Abilify Maintena injection 400 mg po on 09/19/16, next injection due in 4 weeks, patient made aware to continue his care. Patient reports that treatment her was helpfull , he learned a lot, and motivated to continue maintain abstinnec. Scrips for Abilify 5 mg po daily, provided, patient is stable for discharge. Total face to face time:: 15 Mental Status Exam - Mental Status Exam Alert and Oriented to: Time, Place, Person Cognitive Function: Good Patient Appearance: Well Groomed Mood: Hopeful Affect: Mood Congruent Patient Behavior: Appropriate, Cooperative Speech Pattern: Clear, Appropriate Voice Loudness: Normal Thought Process: Intact, Goal Oriented Thought Disorder: Not Present Hallucinations: Denies Suicidal Ideation: Denies Homicidal Ideation: Denies Insight/Judgement: Fair Sleep: Fair Appetite: Good Muscle strength/Tone: Normal Gait/Station: Normal Psychiatric Treatment Plan - Problem List (2) Diabetes mellitus type II, controlled Qualifiers: Diabetes mellitus complication status: without complication Diabetes mellitus terminologist insulin use: with terminologist use Qualified Code(s): E11.9 - Type 2 diabetes mellitus without complications Comment: LANTUS 20 UNITS ACBK METFORMIN 500 MG BID (3) Nicotine dependence Qualifiers: Nicotine product type: cigarettes Substance use status: uncomplicated Qualified Code(s): F17.210 - Nicotine dependence, cigarettes, uncomplicated
[2016-10-02] MEDS: PRENATAL VITAMINS W/ FOLIC ACID TABLET (FP) PO SCH (09:29)
[2016-10-02] MEDS: ARIPiprazole 5 MG TABLET (FP) PO SCH (09:29)
[2016-10-02] MEDS: NICOTINE 21 MG/24 HOURS TOPICAL PATCH TD SCH (09:29)
== END 2016-10-02 10:00 | disposition home or self-care (01) | DRG 772 ==
LOC: YASAS 18:47 → Y3W 23:37
PROVIDERS: ADMIT Psychiatry & Neurology Psychiatry; ATTEND Psychiatry & Neurology Psychiatry
PROC: HZ42ZZZ Group Counseling for Substance Abuse Treatment, Cognitive-Behavioral (ICD-10-PCS; principal; 2016-10-02)
DX: F14.20 Cocaine dependence, uncomplicated (principal); F17.210 Nicotine dependence, cigarettes, uncomplicated; F25.0 Schizoaffective disorder, bipolar type; E11.9 Type 2 diabetes mellitus without complications; Z79.4 Long term (current) use of insulin; H40.89 Other specified glaucoma; R76.11 Nonspecific reaction to tuberculin skin test without active tuberculosis; B18.2 Chronic viral hepatitis C
CPT/HCPCS: 36415; 71020-TC; 80053; 81003; 81015; 85027; 86593; 93005; 93010

== ENCOUNTER 2016-11-28 14:02 | Emergency (ER) | payer OTHER ==
[2016-11-28 14:11] VITALS: TEMP 98.2; BMI 28.8
--- NOTE | 2016-11-28 16:15 | PDOC ---
History of Present Illness - General History Source: Patient, Old Records Exam Limitations: No Limitations <Eula Coates - Last Filed: 11/28/16 16:45> - General History Source: Patient Exam Limitations: No Limitations - History of Present Illness Initial Comments: 11/28/16 16:52 The patient is a 66-year-old man with a significant past medical history of insulin dependent diabetes mellitus (complaint with 50 units of insulin, daily) , who presents to the emergency department via EMS for further evaluation of a hyperglycemia. Patient states that he was undergoing an outpatient CT scan of his liver. He underwent outpatient labs and was noted to be hyperglycemic to 442. Patient informed his Senior Interactive Producer, Dr. Miguel Bloom, who advised him to present to the emergency department for further evaluation. As per patient, he states he took his insulin this morning. He is currently hungry and complaining of throbbing right leg pain with associated numbness and tingling sensations throughout his right lower extremity that has been ongoing for the past 4 days. No fever, chills, generalized weakness. No chest pain,lightheadedness, dizziness, headache, visual chnages, neck pain. No cough, shortness of breath No abdominal pain, nausea, vomiting, diarrhea No urinary complaints. Allergies: Penicillin Past Surgical History: Cholecystectomy (04/2016) Social History: Current everyday cigarette smoker (approximately 7/day). No ETOH use. Former cocaine abuse. Senior Interactive Producer: Miguel Bloom [phone] <Naomie Heredia - Last Filed: 11/28/16 17:54> - General Chief Complaint: Blood Sugar Problem Stated Complaint: HIGH BLOOD SUGAR 442 Time Seen by Provider: 11/28/16 15:24 Past History - Past Medical History Anemia: No Asthma: No Cancer: No Cardiac Disorders: No CVA: No COPD: No CHF: No Dementia: No Diabetes: Yes GI Disorders: No Disorders: No HTN: No Hypercholesterolemia: No Kidney Stones: No Liver Disease: Yes (HEP C) Psychiatric Problems: (BIPOLAR?) Suicide Attempt (Hx): No Seizures: No Thyroid Disease: No - Surgical History Abdominal Surgery: No Appendectomy: No Cardiac Surgery: No Cholecystectomy: Yes Lung Surgery: No Neurologic Surgery: No Orthopedic Surgery: No - Reproductive History Testicular Surgery: No - Psycho/Social/Smoking Cessation Hx Anxiety: No Suicidal Ideation: No Smoking History: Current every day smoker Have you smoked in the past 12 months: Yes Number of Cigarettes Smoked Daily: 7 Cigars Per Day: 0 Information on smoking cessation initiated: Yes 'Breaking Loose' booklet given: 11/28/16 Hx Alcohol Use: No Drug/Substance Use Hx: No Substance Use Type: None Hx Substance Use Treatment: Yes (2 previous inpt rehab @ [facility] and [facility] ) <Eula Coates - Last Filed: 11/28/16 16:45> <Naomie Heredia - Last Filed: 11/28/16 17:54> - Past Medical History Allergies/Adverse Reactions: Allergies Allergy/AdvReac Type Severity Reaction Status Date / Time Penicillins Allergy Mild Hives Verified 11/28/16 14:11 Home Medications: Ambulatory Orders Aripiprazole [Abilify Maintena] 400 mg IM ONCE 09/19/16 Metformin HCl [Glucophage -] 500 mg PO BID@0700,1630 #60 tablet 10/01/16 Aripiprazole [Abilify -] 5 mg PO DAILY #30 tablet 10/02/16 Insulin Glargine,Hum.rec.anlog [Lantus (10mL VIAL) -] 20 units SQ DAILY #1 vial 10/02/16 Metformin HCl 500 mg PO BID #60 tablet 10/02/16 Sitagliptin Phosphate [Januvia -] 50 mg PO BID@0700,1630 #60 tablet 10/02/16 Aripiprazole [Abilify] 5 mg PO AM #30 tablet 10/03/16 Review of Systems - Review of Systems Able to Perform ROS?: Yes Comments:: 11/28/16 16:53 CONSTITUTIONAL: Absent: fever, chills, diaphoresis, generalized weakness, malaise, loss of appetite HEENT: Absent: rhinorrhea, nasal congestion, throat pain, throat swelling, difficulty swallowing, mouth swelling, ear pain, eye pain, visual Changes CARDIOVASCULAR: Absent: chest pain, syncope, palpitations, irregular heart rate , lightheadedness, peripheral edema RESPIRATORY: Absent: cough, shortness of breath, dyspnea with exertion, orthopnea, wheezing, stridor, hemoptysis GASTROINTESTINAL:Absent: abdominal pain, abdominal distension, nausea, vomiting , diarrhea, constipation, melena, hematochezia GENITOURINARY: Absent: dysuria, frequency, urgency, hesitancy, hematuria, flank pain, genital pain MUSCULOSKELETAL: Present: Right leg pain. Absent: arthralgia, joint swelling SKIN: Absent: rash, itching, pallor HEMATOLOGIC/IMMUNOLOGIC: Absent: easy bleeding, easy bruising, lymphadenopathy, frequent infections ENDOCRINE:Absent: unexplained weight gain, unexplained weight loss, heat intolerance, cold intolerance NEUROLOGIC: Present: Numbness and tingling sensations upon his right leg. Absent : headache, dizziness, unsteady gait, seizure, mental status changes, bladder or bowel incontinence PSYCHIATRIC: Absent: anxiety, depression, suicidal or homicidal ideation, hallucinations <Heredia,Naomie - Last Filed: 11/28/16 17:54> *Physical Exam - Vital Signs Last Vital Signs Temp Pulse Resp BP Pulse Ox 98.2 F 66 18 149/83 98 11/28/16 14:08 11/28/16 14:08 11/28/16 14:08 11/28/16 14:08 11/28/16 14:08 <Eula Coates - Last Filed: 11/28/16 16:45> - Vital Signs Last Vital Signs Temp Pulse Resp BP Pulse Ox 98.2 F 66 18 149/83 98 11/28/16 14:08 11/28/16 14:08 11/28/16 14:08 11/28/16 14:08 11/28/16 14:08 - Physical Exam Comments: 11/28/16 16:55 GENERAL: Well developed, well nourished. Awake and alert. No acute distress. HEENT: Normocephalic, atraumatic. PERRLA, EOMI. No conjunctival pallor. Sclera are non-icteric. Moist mucous membranes. Oropharynx is clear. NECK: Supple. Full ROM. No JVD. CARDIOVASCULAR: Regular rate and rhythm. No murmurs, rubs, or gallops. PULMONARY: No evidence of respiratory distress. Lungs clear to auscultation bilaterally. No wheezing, rales or rhonchi. ABDOMINAL: Soft. Non-tender. Non-distended. No rebound or guarding. No organomegaly. Normoactive bowel sounds. MUSCULOSKELETAL: Normal range of motion at all joints. No bony deformities or tenderness. No CVA tenderness. EXTREMITIES: No cyanosis. No clubbing. No edema. No calf tenderness. SKIN: Warm and dry. Normal capillary refill. No rashes. No jaundice. NEUROLOGICAL: Alert, awake, appropriate. Cranial nerves 2-12 intact. Positive straight leg rising RLE. Decreased sensations over the RLE. Normoreflexic in the upper and lower extremities. Normal speech. PSYCHIATRIC: Cooperative. Good eye contact. Appropriate mood and affect. <Naomie Heredia - Last Filed: 11/28/16 17:54> ED Treatment Course - LABORATORY CBC & Chemistry Diagram: 11/28/16 17:20 11/28/16 17:20 - Medications Given in the ED: ED Medications Discontinued Medications Generic Name Dose Route Start Last Admin Trade Name Freq PRN Reason Stop Dose Admin Insulin Human Regular 10 units 11/28/16 16:19 11/28/16 16:46 Novolin R Vial *For Ivpush Or Iv Drip Only* SQ 11/28/16 16:20 Not Given ONCE ONE <Naomie Heredia - Last Filed: 11/28/16 17:54> Medical Decision Making - Medical Decision Making 11/28/16 16:45 66-year-old male with history of hepatitis C, hypertension and diabetes who presents to the emergency department for evaluation of hyperglycemia on labs drawn earlier today; of note he has back pain radiating down his right lower extremity 4 days. Fingerstick glucose in the emergency department was 229. Differential diagnosis includes but is not limited to: DKA, uncontrolled diabetes, electrolyte abnormality, toxic/metabolic derangement, infection, dehydration, sciatica, nerve impingement. Plan: 1. Labs 2. EKG 3. Chest x-ray 4. Urine analysis 5. IV fluids for hydration 6. Observe and reevaluate <Eula Coates - Last Filed: 11/28/16 16:45> - Medical Decision Making 11/28/16 17:[address] Bloom. 11/28/16 17:[address] Gaspar. Case was discussed. <Naomie Heredia - Last Filed: 11/28/16 17:54> *DC/Admit/Observation/Transfer - Attestations Physician Attestion: 11/28/16 16:47 I, Dr. Eula Coates, attest that the scribes documentation that appears above has been prepared under my direction and personally reviewed by me in its entirety. I confirmed that the note above accurately reflects all work, treatment, procedures, and medical decision-making performed by me. <Eula Coates - Last Filed: 11/28/16 16:45> - Attestations Scribe Attestion: 11/28/16 16:56 Documentation prepared by Naomie Heredia, acting as medical care administrator for Eula Coates MD. <Naomie Heredia - Last Filed: 11/28/16 17:54> Diagnosis at time of Disposition: Uncontrolled diabetes mellitus - Referrals Referrals: Miguel Ruiz MD [Primary Care Provider] -
[2016-11-28] MEDS ORDERED: SODIUM CHLORIDE 1,000 ML IV STA (16:16)
[2016-11-28] MEDS ORDERED: INSULIN REGULAR HUMAN 100 UNITS/ML *VIAL SQ ONE (16:19)
[2016-11-28 17:32] LABS: BASOPHIL 0.9 % (0-2.0); EOSINOPHIL 0.9 % (0-4.5); MCH 33.4 pg (25.7-33.7); MCHC 35.3 g/dl (32.0-35.9); MEAN CELL VOLUME 94.7 fl (80-96); MEAN PLT VOLUME 11.3 fl (7.5-11.1); NEUTROPHILS 58.8 % (42.8-82.8); PLATELET COUNT 245 K/MM3 (134-434); RDW 13.8 % (11.9-15.9); WHITE BLOOD COUNT 9.8 K/mm3 (4.0-10.0)
[2016-11-28] MEDS ORDERED: ACETAMINOPHEN 500 MG TABLET (FP) PO ONE (17:43)
[2016-11-28] MEDS ORDERED: ACETAMINOPHEN 325 MG TABLET (FP) ONE (18:00)
[2016-11-28 21:25] LABS: PHOSPHOROUS 3.1 mg/dL (2.5-4.9)
[2016-11-28 21:26] LABS: ALBUMIN 3.3 g/dl (3.4-5.0); ANION GAP 9 (8-16); BILIRUBIN,TOTAL 0.8 mg/dL (0.2-1.0); CALCIUM 8.6 mg/dL (8.5-10.1); CO2 25 mmol/L (21-32); COCKROFT - GAULT 115.17; CREATININE 0.8 mg/dL (0.7-1.3); GLUCOSE,RANDOM 158 mg/dL (74-106); SGPT/ALT 136 U/L (12-78)
[2016-11-28 21:27] LABS: ALK PHOS 128 U/L (45-117); TROPONIN I < 0.02 ng/ml (0.00-0.05)
[2016-11-28 21:30] LABS: MAGNESIUM 1.9 mg/dL (1.8-2.4)
[2016-11-28 21:32] LABS: SGOT/AST 160 U/L (15-37)
--- NOTE | 2016-11-28 22:00 | PDOC ---
*Physical Exam - Vital Signs Last Vital Signs Temp Pulse Resp BP Pulse Ox 98.2 F 66 18 149/83 98 11/28/16 14:08 11/28/16 14:08 11/28/16 14:08 11/28/16 14:08 11/28/16 14:08 ED Treatment Course - LABORATORY CBC & Chemistry Diagram: 11/28/16 17:20 11/28/16 20:18 - ADDITIONAL ORDERS Additional order review: Laboratory Results 11/28/16 11/28/16 11/28/16 20:18 20:18 17:50 Sodium 137 Cancelled Potassium 4.4 Cancelled Chloride 103 Cancelled Carbon Dioxide 25 Cancelled Anion Gap 9 Cancelled BUN 12 Cancelled Creatinine 0.8 D Cancelled Creat Clearance w eGFR > 60 Cancelled Random Glucose 158 H D Cancelled Calcium 8.6 Cancelled Phosphorus 3.1 Cancelled Magnesium 1.9 Cancelled Total Bilirubin 0.8 D Cancelled AST 160 H Cancelled ALT 136 H Cancelled Alkaline Phosphatase 128 H Cancelled Creatine Kinase 124 Cancelled Troponin I < 0.02 Cancelled Total Protein 9.0 H D Cancelled Albumin 3.3 L D Cancelled Lipase 155 Cancelled Acetone, Qual Cancelled 11/28/16 11/28/16 17:20 17:20 Sodium Cancelled Potassium Cancelled Chloride Cancelled Carbon Dioxide Cancelled Anion Gap Cancelled BUN Cancelled Creatinine Cancelled Creat Clearance w eGFR Cancelled Random Glucose Cancelled Calcium Cancelled Phosphorus Cancelled Magnesium Cancelled Total Bilirubin Cancelled AST Cancelled ALT Cancelled Alkaline Phosphatase Cancelled Creatine Kinase Cancelled Troponin I Cancelled Total Protein Cancelled Albumin Cancelled Lipase Acetone, Qual Cancelled 11/28/16 17:20 RBC 4.67 MCV 94.7 MCHC 35.3 RDW 13.8 MPV 11.3 H D Neutrophils % 58.8 Lymphocytes % 30.6 Monocytes % 8.8 Eosinophils % 0.9 Basophils % 0.9 - Medications Given in the ED: ED Medications Discontinued Medications Generic Name Dose Route Start Last Admin Trade Name Freq PRN Reason Stop Dose Admin Acetaminophen 1,000 mg 11/28/16 17:43 11/28/16 18:10 Tylenol - PO 11/28/16 17:44 1,000 mg ONCE ONE Administration Sodium Chloride 1,000 mls @ 1,000 mls/hr 11/28/16 16:16 11/28/16 17:02 Normal Saline - IV 11/28/16 17:15 1,000 mls/hr ASDIR STA Administration Insulin Human Regular 10 units 11/28/16 16:19 11/28/16 16:46 Novolin R Vial *For Ivpush Or Iv Drip Only* SQ 11/28/16 16:20 Not Given ONCE ONE Medical Decision Making - Medical Decision Making 11/28/16 22:01 blood glucose is 158 on the CMP. Pt will follow up with his pcp for any other issues. *DC/Admit/Observation/Transfer Diagnosis at time of Disposition: Uncontrolled diabetes mellitus - Discharge Dispostion Disposition: HOME Condition at time of disposition: Stable Admit: No - Referrals Referrals: Miguel Ruiz MD [Primary Care Provider] - - Patient Instructions Printed Discharge Instructions: DI for Hyperglycemia -- Adult Additional Instructions: Please follow up with your doctor and continue taking all your medications - Post Discharge Activity
[2016-11-28 22:17] VITALS: BP 135/75; PULSE 72
[2016-11-28 22:21] LABS: ACETONE SERUM NEGATIVE (NEGATIVE)
[2016-11-28 22:24] LABS: URINE APPEARANCE CLEAR; URINE BILIRUBIN NEGATIVE (NEGATIVE); URINE BLOOD NEGATIVE (NEGATIVE); URINE COLOR YELLOW; URINE GLUCOSE (UA) 3+ (NEGATIVE); URINE KETONE NEGATIVE (NEGATIVE); URINE LEUK ESTERASE NEGATIVE (NEGATIVE); URINE NITRITE NEGATIVE (NEGATIVE); URINE PROTEIN NEGATIVE (NEGATIVE); URINE UROBILINOGEN 4.0 E.U/dl E.U./dl (0.2-1.0)
--- NOTE | 2016-11-29 11:38 | EKG ---
Test Reason : Blood Pressure : / mmHG Vent. 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
== END 2016-11-28 22:17 | disposition home or self-care (01) ==
LOC: JER 14:02
PROC: 3E0337Z Introduction of Electrolytic and Water Balance Substance into Peripheral Vein, Percutaneous Approach (ICD-10-PCS; principal; 2016-11-28)
DX: E11.65 Type 2 diabetes mellitus with hyperglycemia (principal); Z79.4 Long term (current) use of insulin; M79.604 Pain in right leg; R20.2 Paresthesia of skin; B18.2 Chronic viral hepatitis C; F31.9 Bipolar disorder, unspecified
CPT/HCPCS: 36415; 71010-TC; 80048; 80053; 81003; 82009; 82105; 82550; 83690; 83735; 84100; 84484; 85025; 93005; 93010; 99283-25